=== PATIENT | female | born 1975 | race Caucasian/White ===

== ENCOUNTER 2017-09-16 09:43 | Emergency (ER) | END 2017-09-16 11:06 | disposition home or self-care (01) ==

== ENCOUNTER 2017-09-17 07:23 | Emergency (ER) | END 2017-09-17 09:01 | disposition home or self-care (01) ==

== ENCOUNTER 2018-02-14 12:42 | Emergency (ER) | END 2018-02-14 16:27 | disposition home or self-care (01) ==

== ENCOUNTER 2018-08-10 16:55 | Emergency (ER) | payer OTHER ==
[~2018-08-10] VITALS: Ht 160 cm; Wt 56.3 kg
[~2018-08-10 16:55] MED LIST: AMOX1TAB10 PO; AZIT250T PO; BACL10TA PO; BENZ-6 PO; BUTA1CAP35 PO; D-ME473S2 PO; POLY10DR19 BOTH EYES; PSEU30TA38 PO; TOPI50TA13 PO; VERA120C9 PO
[2018-08-10 17:12] VITALS: Ht 160 cm; Wt 56.3 kg
--- NOTE | 2018-08-10 18:29 | ERD ---
ER Documentation Chief Complaint Chief Complaint VAGINAL BLEEDING SINCE JULY 15, DENIES HPI The patient is a 43-year-old female, presenting to the ER because of persistent vaginal bleeding for the last 27 days, beginning July 15. She has not seen a packaging associate, complains of intermittent dizziness, denies syncope, near syncope, neck pain, chest pain, dyspnea, abdominal pain, vomiting, dysuria, diarrhea. She does not smoke nor drink Past medical history: Migraine Past surgical history: 3 ROS All systems reviewed and are negative except as per history of present illness. Medications Home Meds Active Scripts Sulfamethoxazole/Trimethoprim* (Bactrim Ds* Tablet) 1 Each Tablet, 1 TAB PO BID, #14 TAB Prov:LORENZA ANDRADE MD 08/10/18 Verapamil Hcl* (Verapamil Hcl*) 120 Mg Cap24h.pel, 120 MG PO DAILY for headache prophylaxis, #30 CAP Prov:LORENZA PARK DO 02/14/18 Polymyxin B Sulfate-TMP* (Polymyxin B-TMP Eye Drops*) 10 Ml Drops, 1 DROP BOTH EYES QID for 7 Days, EA Prov:NIMCO LOPEZ PA-C 09/17/17 Pseudoephedrine Hcl* (Pseudoephedrine Hcl*) 30 Mg Tablet, 30 MG PO Q6 PRN for CONGESTION, #30 TAB Prov:NIMCO LOPEZ PA-C 09/17/17 Benzonatate* (Tessalon Perle*) 100 Mg Capsule, 100 MG PO Q8H PRN for COUGH, #30 CAP Prov:NIMCO LOPEZ PA-C 09/17/17 Amoxicillin/Potassium Clav (Amox-Clav 875-125 mg Tablet) 875-125 mg Tab, 1 TAB PO BID for 7 Days, #14 TAB Prov:NIMCO LOPEZ PA-C 09/17/17 Dextromethorphan Hb-Promethazine Hcl* (Promethazine DM* Syrup) 473 Ml Syrup, 5 ML PO Q6 PRN for COUGH, #100 ML Prov:NIMCO LOPEZ PA-C 09/16/17 Azithromycin* (Zithromax*) 250 Mg Tablet, 250 MG PO .KENNETH DIRECTED, #6 TAB TAKE 500 MG (2 TABS) THE FIRST DAY THEN 250 MG (1 TAB) DAYS 2-5 Prov:NIMCO LOPEZ PA-C 09/16/17 Reported Medications Butalb/Acetaminophen/Caffeine ([id number]-[id number]-CFSA 50-300-40) 1 Each Capsule, 1 EACH PO TID 06/21/13 Baclofen* (Baclofen*) 10 Mg Tablet, 10 MG PO BID 06/21/13 Topiramate* (Topiramate*) 50 Mg Tablet, 50 MG PO HS 06/21/13 Allergies Allergies: Coded Allergies: No Known Drug Allergies (Verified Allergy, Unknown, 02/14/18) PMhx/Soc History of Surgery: Yes () Anesthesia Reaction: No Hx Neurological Disorder: No Hx Respiratory Disorders: No Hx Cardiac Disorders: No Hx Psychiatric Problems: No Hx Miscellaneous Medical Probl: Yes (MIGRAINE) Hx Alcohol Use: No Hx Substance Use: No Hx Tobacco Use: No Physical Exam Vitals Vital Signs Date Temp Pulse Resp B/P (MAP) Pulse Ox O2 O2 Flow FiO2 Time Delivery Rate 08/10/18 98.3 80 16 117/76 100 Room Air 20:38 (90) 08/10/18 88 19 109/68 99 Room Air 18:57 (82) 08/10/18 98.8 75 18 130/79 98 17:12 (96) Physical Exam Const: No acute distress. Head: Atraumatic. Eyes: Normal Conjunctiva. ENT: Normal External Ears, Nose and Mouth. Neck: Full range of motion. No meningismus. Resp: Clear to auscultation bilaterally. Cardio: Regular rate and rhythm. Abd: Soft, non distended, normal bowel sounds, non tender. Skin: No petechiae or rashes. Back: No midline or flank tenderness. Ext: No cyanosis, or edema. Neur: Awake and alert. No focal deficit Psych: Normal Mood and Affect. Result Diagram: 08/10/18184808/10/181848 Results 24 hrs Laboratory Tests Test 08/10/18 18:34 08/10/18 18:40 08/10/18 18:44 08/10/18 18:49 Urine Color RED Urine Clarity CLOUDY Urine pH 6.0 Urine Specific 1.010 [place] Urine Ketones NEGATIVE mg/dL Urine Nitrite NEGATIVE mg/dL Urine Bilirubin NEGATIVE mg/dL Urine NEGATIVE mg/dL Urobilinogen Urine Leukocyte 2+ Kathi/ul Esterase Urine Microscopic > 182 /HPF RBC Urine Microscopic > 182 /HPF WBC Urine Squamous FEW /HPF Epithelial Cells Urine Bacteria FEW /HPF Urine Hemoglobin 3+ mg/dL Urine Glucose NEGATIVE mg/dL Urine Total 2+ mg/dl Protein Bedside Urine pH 6.5 (LAB) Bedside Urine 1+ Protein (LAB) Bedside Urine Negative Glucose (UA) Bedside Urine Negative Ketones (LAB) Bedside Urine 3+ Blood Bedside Urine Negative Nitrite (LAB) Bedside Urine Negative Leukocyte Esteras e (L POC Beta HCG, NEGATIVE Qualitative White Blood Count 5.0 10^3/ul Red Blood Count 4.11 10^6/ul Hemoglobin 10.7 g/dl Hematocrit 34.7 % Mean Corpuscular 84.4 fl Volume Mean Corpuscular 26.0 pg Hemoglobin Mean Corpuscular 30.8 g/dl Hemoglobin Concen t Red Cell 13.9 % Distribution Width Platelet Count 324 10^3/UL Mean Platelet 9.5 fl Volume Immature 0.200 % Granulocytes % Neutrophils % 60.2 % Lymphocytes % 30.6 % Monocytes % 6.8 % Eosinophils % 1.4 % Basophils % 0.8 % Nucleated Red 0.0 /100WBC Blood Cells % Immature 0.010 10^3/ul Granulocytes # Neutrophils # 3.0 10^3/ul Lymphocytes # 1.5 10^3/ul Monocytes # 0.3 10^3/ul Eosinophils # 0.1 10^3/ul Basophils # 0.0 10^3/ul Nucleated Red 0.0 10^3/ul Blood Cells # Sodium Level 140 mmol/L Potassium Level 3.8 mmol/L Chloride Level 105 mmol/L Carbon Dioxide 27 mmol/L Level Anion Gap 8 Blood Urea 13 mg/dl Nitrogen Creatinine 0.69 mg/dl Est Glomerular > 60 mL/min Filtrat Rate mL/min Glucose Level 87 mg/dl Calcium Level 9.1 mg/dl Beta HCG, < 2.4 mIU/ml Quantitative Current Medications Medications Dose Sig/Maral Start Time Status Last (Trade) Ordered Route PRN Stop Time Admin Dose Reason Admin Sodium 1,000 ml @ Q1H STAT 08/10/18 DC 08/10/18 Chloride 1,000 mls/hr IV 18:40 18:51 08/10/18 19:39 Procedures/MDM [place] [id number] Radiology Main Line: [phone] DIAGNOSTIC IMAGING REPORT Patient: AUSTIN IVORY : 1975 Age: 43 Sex: F MR #: [id number] DOS: 08/10/18 1840 Ordering MD: LORENZA ANDRADE MD Location: E/R Room/Bed: PROCEDURE: US Pelvis. CLINICAL INDICATION: Abnormal vaginal bleeding. TECHNIQUE: The pelvis was evaluated with transabdominal and transvaginal sonog antionette in the axial and sagittal planes. COMPARISON: No prior study is available for comparison. FINDINGS: Uterus: 7.1 x 3.7 x 5.7 cm. Endometrium: 2.6 mm. Right ovary: 2.5 x 1.6 x 1.9 cm. Left ovary: 2.1 x 1.1 x 2.0 cm. Uterine masses: None. Ovarian masses: None. Color Doppler and pulsed Doppler sonography demonstrate normal flow to the ovaries. Other pelvic masses: None. Free fluid: None. IMPRESSION: 1. Normal pelvic ultrasound. RPTAT: QQ .Pako Estrella MD, MD Date Time Electronically viewed and signed by .Pako Estrella MD, MD on 08/10/2018 20:38 .R/ CC: LORENZA ANDRADE MD [id number] MEDICAL MAKING DECISION: The patient is a 43-year-old female, presenting with acute dysfunctional uterine bleeding, acute cystitis, is stable outpatient follow-up The differential diagnoses considered include but are not limited to UTI, fibroid, pyelonephritis, uterine polyps, uterine malignancy Departure Diagnosis: Primary Impression: Dysfunctional uterine bleeding Additional Impressions: UTI (urinary tract infection) Anemia Condition: Good Comments She was discharged with Bactrim DS I discussed the findings with the patient. I advised the patient to follow-up with her packaging associate in about 1-2 days, sooner if needed and return if any concern. Disclaimer: Inadvertent spelling and grammatical errors are likely due to EHR/dictation software use and do not reflect on the overall quality of patient care. Also, please note that the electronic time recorded on this note does not necessarily reflect the actual time of the patient encounter. LORENZA ANDRADE MD August 10, 2018 18:29
[2018-08-10] MEDS ORDERED: SOD CHLORIDE 0.9% 1,000 ML IV STA (18:40)
[2018-08-10] MEDS ORDERED: SULF1TAB31 PO (20:19)
[2018-08-10 20:38] VITALS: BP 117/76; PULSE 80; RESP 16
== END 2018-08-10 20:39 | disposition home or self-care (01) ==
LOC: E/R 16:55
DX: N93.8 Other specified abnormal uterine and vaginal bleeding (principal); N39.0 Urinary tract infection, site not specified; D64.9 Anemia, unspecified
CPT/HCPCS: 36415; 76830; 76856; 80048; 81001; 81025; 84702; 85025; 86900; 86901; J7030; Z7502; 81003